=== PATIENT | female | born 1980 | race Caucasian/White ===

== ENCOUNTER 2024-05-02 13:41 | Emergency (ER) | payer OTHER ==
[2024-05-02 14:22] LABS: Absolute Eosinophils 0.1 K/uL (0-0.5); Absolute Lymphocytes (CBC) 1.6 K/uL (0.7-4.9); Absolute Monocytes 0.5 K/uL (0.1-1.3); Absolute Neutrophil 5.9 K/uL (1.8-8.0); Basophils % 0.3 % (0-1.3); Eosinophils % 0.7 % (0-4.4); Hematocrit 39.8 % (36.0-45.0); Hemoglobin 13.4 g/dL (12.0-15.0); Lymphocytes % 20.2 % (15.3-44.8); MCH 29.1 pg (27.0-35.0); MCHC 33.6 g/dL (32.0-36.0); MCV 86.5 fL (80-100); MPV 7.8 fL (7.6-11.3); Monocytes % 5.9 % (3.3-12.3); Neutrophils % 72.9 % (41.7-73.7); Nucleated Red Blood Cells % 0.1 % (0-0); Platelets 226 thou/uL (152-406); RBC Red Blood Cell Count 4.59 M/uL (3.86-4.86); Red Cell Distribution Width 14.5 % (12.1-15.2)
[2024-05-02 14:40] LABS: Anion Gap 7.6 mEq/L (5.0-15.0); BUN Blood Urea Nitrogen 14 mg/dL (7-18); Bicarbonate 26 mEq/L (21-32); Glomerular Filtration Rate 89 ml/min (=/>90); Glucose Level 96 mg/dL (74-106); NT PRO-BNP 48 pg/mL (<125); Potassium 3.6 mEq/L (3.5-5.1); Sodium Level 139 mEq/L (136-145)
[2024-05-02 14:43] LABS: Troponin High Sensitivity < 3.0 pg/mL (<58.9)
--- NOTE | 2024-05-02 15:54 | RAD REPORT ---
EXAMINATION: ONE VIEW CHEST XR CLINICAL INDICATION: Female, 43 years old.,CHEST PAIN TECHNIQUE: Frontal chest projection is submitted. Examination is limited by patient positioning and t echnique. COMPARISON: No prior exam. FINDINGS: The lungs are well inflated and clear. No pneumothorax or sizable effusion. The heart is normal in s ize. Mediastinal contours are unremarkable. IMPRESSION: No acute intrathoracic abnormalities.
[2024-05-02 16:02] LABS: Specific Gravity > 1.030 (1.005-1.030); Urine Bilirubin NEGATIVE (Negative); Urine Blood Negative (Negative); Urine Clarity Clear (Clear); Urine Color Colorless (Yellow); Urine Glucose NEGATIVE (Negative); Urine Ketones NEGATIVE (Negative); Urine Microscopic Reflex YN NO UMIC; Urine Nitrite NEGATIVE (Negative); Urine Protein NEGATIVE (Negative); Urine Urobilinogen Normal (Normal)
[2024-05-02 16:04] LABS: Specific Gravity > 1.030 (1.005-1.030)
--- NOTE | 2024-05-02 17:21 | RAD REPORT ---
EXAM: CT Head Brain Wo Cont HISTORY: HEADACHE COMPARISON: None TECHNIQUE: Multiple contiguous axial images were obtained for a CT of the brain without contrast. Sag ittal and coronal reformats were performed. One or more of the following dose reduction techniques were used: Automated exposure control, adjus tment of the mA and kV according to patient size, and iterative reconstruction. Unless otherwise specified, incidental findings do not require dedicated imaging follow-up. FINDINGS: No evidence of hydrocephalus, intracranial hemorrhage, or extra-axial fluid collection. The brain is normal in morphology. The calvarium is intact. The visualized paranasal sinuses and mastoid air cells are essentially clear . IMPRESSION: No evidence of acute intracranial abnormality.
--- NOTE | 2024-05-02 17:24 | RAD REPORT ---
EXAMINATION: CTA HEAD CLINICAL INDICATION: Female, 43 years old. headache, HTN TECHNIQUE: Axial CT images were obtained through the head after intravenous contrast utilizing angiog raphic protocol with 3D post-processing (maximum intensity projection images, volume rendered images and/or shaded surface rendered images). One or more of the following dose reduction technique s were used: Automated exposure control, adjustment of the mA and/or kV according to patient size, and/or iterative reconstruction. Unless otherwise specified, incidental findings do not require dedic ated imaging follow-up. COMPARISON: No prior exam. FINDINGS: ICA: The petrous, cavernous, and supraclinoid segments of the bilateral internal carotid arteries are normal. KYA: Anterior cerebral arteries are normal bilaterally. The anterior communicating artery is patent. MCA: Middle cerebral arteries are normal bilaterally. SHAG TRUCK DRIVER: Posterior cerebral arteries are normal bilaterally. Vertebrobasilar: The vertebral arteries are patent. The basilar artery is normal in appearance. 3D images confirm these findings. IMPRESSION: No evidence of large vessel occlusion or hemodynamically significant stenosis.
--- NOTE | 2024-05-02 17:46 | ER ---
Nurse's Notes [facility] Name: Beverley Toscano Age: 43 yrs Sex: Female : 1980 Arrival Date: 05/02/2024 Time: 13:41 Bed 16 Private MD: Diagnosis: Elevated blood-pressure reading, without diagnosis of hypertension;Headache;Chest pain, unspecified Presentation: 05/02 13:59 Chief complaint: Patient states: CP and SOB 1 hour [employer]. Coronavirus screen: Client ll1 denies travel out of the [place] in the last 14 days. At this time, the client does not indicate any symptoms associated with coronavirus-19. Ebola Screen: Patient denies travel to an Ebola-affected area in the 21 days before illness onset. Initial Sepsis Screen: Does the patient meet any 2 criteria? No. Patient's initial sepsis screen is negative. Does the patient have a suspected source of infection? No. Patient's initial sepsis screen is negative. Risk Assessment: Do you want to hurt yourself or someone else? Patient reports no desire to harm self or others. Onset of symptoms was May 02, 2024. 13:59 Method Of Arrival: Ambulatory ll1 13:59 Acuity: BECKY 3 ll1 Triage Assessment: 14:00 General: Appears uncomfortable, Behavior is cooperative, appropriate for age, anxious. ll1 Pain: Complains of pain in chest Pain currently is 2 out of 10 on a pain scale. Quality of pain is described as squeezing. Cardiovascular: Reports chest pain, shortness of breath. Historical: - Allergies: 13:58 No Known Allergies; ll1 - PMHx: 13:58 anxiety/depression; ll1 - PSHx: 13:58 None; ll1 - Immunization history:: Adult Immunizations up to date. - Infectious Disease History:: Denies. - Social history:: Smoking status: Patient denies any tobacco usage or history of. - Family history:: not pertinent. - Hospitalizations: : No recent hospitalization is reported. Screenin:09 [facility] ED Fall Risk Assessment (Adult) History of falling in the last 3 months, db including since admission No falls in past 3 months (0 pts) Confusion or Disorientation No (0 pts) Intoxicated or Sedated No (0 pts) Impaired Gait No (0 pts) Mobility Assist Device Used No (0 pt) Altered Elimination No (0 pt) Score/Fall Risk Level 0 - 2 = Low Risk Oriented to surroundings, Maintained a safe environment. Abuse screen: Denies threats or abuse. Denies injuries from another. Nutritional screening: No deficits noted. Tuberculosis screening: No symptoms or risk factors identified. Assessment: 14:55 Reassessment: Patient appears in no apparent distress at this time. Patient and/or db family updated on plan of care and expected duration. Pain level reassessed. Patient is alert, oriented x 3, equal unlabored respirations, skin warm/dry/pink. Reassessment: Patient states feeling better. Patient states symptoms have improved. General: Appears in no apparent distress. comfortable, Behavior is calm, cooperative. Pain: Pain does not radiate. Pain began gradually. Neuro: Level of Consciousness is awake, alert, obeys commands, Oriented to person, place, time, situation. Respiratory: Airway is patent Respiratory effort is even, unlabored, Respiratory pattern is regular, symmetrical. 16:00 Reassessment: Patient appears in no apparent distress at this time. Patient and/or db family updated on plan of care and expected duration. Pain level reassessed. Patient is alert, oriented x 3, equal unlabored respirations, skin warm/dry/pink. 17:00 Reassessment: Patient appears in no apparent distress at this time. Patient and/or db family updated on plan of care and expected duration. Pain level reassessed. Patient is alert, oriented x 3, equal unlabored respirations, skin warm/dry/pink. 18:03 Reassessment: Patient appears in no apparent distress at this time. Patient and/or db family updated on plan of care and expected duration. Pain level reassessed. Patient is alert, oriented x 3, equal unlabored respirations, skin warm/dry/pink. Patient states feeling better. Patient states symptoms have improved. Vital Signs: 13:50 BP 161 / 91; Pulse 84; Resp 16; Pulse Ox 100% ; db 13:59 BP 137 / 92; Pulse 78; Resp 16; Pulse Ox 100% ; Weight 63.5 kg; Height 5 ft. 4 in. ; ll1 Pain 2/10; 14:30 BP 126 / 86; Pulse 70; Resp 16; Pulse Ox 100% on R/A; db 16:00 BP 139 / 98; Pulse 70; Pulse Ox 100% on R/A; db 16:16 BP 122 / 89; Pulse 87; Resp 16; Pulse Ox 100% on R/A; db 17:00 BP 129 / 101; Pulse 75; Resp 16; Pulse Ox 98% on R/A; db 13:59 Body Mass Index 24.03 (63.50 kg, 162.56 cm) ll1 13:59 Pain Scale: Adult [facility] ED Course: 13:42 Patient arrived in ED. im 13:44 Harman Boland MD is Attending Physician. rn 13:58 Arm band placed on Patient placed in an exam room, on a stretcher. ll1 14:00 Triage completed. ll1 14:12 Kiya Calderon, RN is Primary Nurse. db 14:19 Warm blanket given. Verbal reassurance given. am7 14:19 Inserted saline lock: 20 gauge in left antecubital area, using aseptic technique. Blood am7 collected. Flushed with 10 mL NS. 14:36 XRAY Chest (1 view) In Process Unspecified. EDMS 15:07 CT Head Brain wo Cont In Process Unspecified. EDMS 15:[address] In Process Unspecified. EDMS 15:09 Patient moved back from CT. db 18:03 Patient has correct armband on for positive identification. Bed in low position. Call db light in reach. Side rails up X 1. Provided Education on: DISCHARGE AND FOLLOWUP. shelter monitor on. Pulse ox on. NIBP on. 18:03 No provider procedures requiring assistance completed. IV discontinued, intact, db bleeding controlled, No redness/swelling at site. Patient maintains SpO2 saturation greater than 95% on room air. Administered Medications: No medications were administered Medication: 17:30 VIS not applicable for this client. db Outcome: 17:46 Discharge ordered by . rn 18:03 Discharged to home ambulatory, with family, db 18:03 Condition: stable 18:03 Discharge instructions given to patient, family, Instructed on discharge instructions, follow up and referral plans. 18:06 Patient left the ED. db Signatures: Dispatcher [employer] Harman Ramirez MD MD rn Lewis, Lynsay, RN RN 1 Kiya Calderon, RN RN db Duarte, Tonie im Muraira, Julissa am7 Corrections: (The following items were deleted from the chart) 14:08 13:59 Pulse 78bpm; Resp 16bpm; Pulse Ox 100%; 63.5 kg; Height 5 ft. 4 in.; BMI: 24.0; ll1 Pain 2/10, Adult; ll1
--- NOTE | 2024-05-02 17:46 | EDPHYS ---
Physician Documentation [facility] Name: Beverley Toscano Age: 43 yrs Sex: Female : 1980 Arrival Date: 05/02/2024 Time: 13:41 Bed 16 Private MD: ED Physician Harman Boland HPI: 05/02 14:13 This 43 yrs old Female presents to ER via Ambulatory with complaints of Chest Pain, rn High Blood Pressure. 14:13 The patient or guardian reports chest pain that is located primarily in the anterior rn chest wall. Onset: this morning. The pain does not radiate. Associated signs and symptoms: Pertinent negatives: abdominal pain, cough, diaphoresis, dizziness, palpitations, syncope, vomiting. The chest pain is described as a heaviness. Modifying factors: The symptoms are alleviated by nothing. the symptoms are aggravated by nothing. Severity of pain: At its worst the pain was mild in the emergency department the pain has improved. The patient has not experienced similar symptoms in the past. Patient reports chest pain, started a few hours ago, left sided and feels like pressure on chest. Patient reports 2 days ago had sudden onset headache associated with high blood pressure. Does not have a history of high blood pressure. Patient reports blood pressure is normal. Does have family history of cerebral aneurysm. No family history of early cardiac disease. No head injury or trauma. No focal neurological deficit. Headache resolved with [id number] medication and rest that day. Does not have any more headache for the last few days. When chest pain started today she checked her blood pressure and was elevated so came in for evaluation. Denies abdominal pain.. Historical: - Allergies: 13:58 No Known Allergies; ll1 - PMHx: 13:58 anxiety/depression; ll1 - PSHx: 13:58 None; ll1 - Immunization history:: Adult Immunizations up to date. - Infectious Disease History:: Denies. - Social history:: Smoking status: Patient denies any tobacco usage or history of. - Family history:: not pertinent. - Hospitalizations: : No recent hospitalization is reported. ROS: 14:13 Constitutional: Negative for fever, chills, and weight loss, Eyes: Negative for injury, rn pain, redness, and discharge, Neck: Negative for injury, pain, and swelling, Cardiovascular: Positive for chest pain Respiratory: Negative for shortness of breath, cough, wheezing, and pleuritic chest pain, Abdomen/GI: Negative for abdominal pain, nausea, vomiting, diarrhea, and constipation, Back: Negative for injury and pain, MS/Extremity: Negative for injury and deformity, Skin: Negative for injury, rash, and discoloration, Neuro: Negative for headache, weakness, numbness, tingling, and seizure, Exam: 14:13 Constitutional: This is a well developed, well nourished patient who is awake, alert, rn and in no acute distress. Head/Face: Normocephalic, atraumatic. Neck: No meningismus Cardiovascular: Regular rate and rhythm. No pulse deficits. No murmur Respiratory: No increased work of breathing, no retractions or nasal flaring. Abdomen/GI: Soft, non-tender, with normal bowel sounds. No distension or tympany. No guarding or rebound. No evidence of tenderness throughout. MS/ Extremity: Pulses equal, no cyanosis. Neurovascular intact. Full, normal range of motion. Equal circumference. Neuro: Awake and alert, GCS 15, oriented to person, place, time, and situation. Cranial nerves II-XII grossly intact. Motor strength 5/5 in all extremities. Sensory grossly intact. 14:19 ECG was reviewed by the Attending Physician. rn Vital Signs: 13:50 BP 161 / 91; Pulse 84; Resp 16; Pulse Ox 100% ; db 13:59 BP 137 / 92; Pulse 78; Resp 16; Pulse Ox 100% ; Weight 63.5 kg; Height 5 ft. 4 in. ; ll1 Pain 2/10; 14:30 BP 126 / 86; Pulse 70; Resp 16; Pulse Ox 100% on R/A; db 16:00 BP 139 / 98; Pulse 70; Pulse Ox 100% on R/A; db 16:16 BP 122 / 89; Pulse 87; Resp 16; Pulse Ox 100% on R/A; db 17:00 BP 129 / 101; Pulse 75; Resp 16; Pulse Ox 98% on R/A; db 13:59 Body Mass Index 24.03 (63.50 kg, 162.56 cm) ll1 13:59 Pain Scale: Adult ll1 MDM: 13:44 Medical Screening Exam initiated rn 17:45 Differential diagnosis: acute myocardial infarction, acute pericarditis, anxiety, chest rn wall pain, costochondritis, gastroesophageal reflux disease (GERD), pleurisy, pneumothorax, Hypertension. HEART Score: History: Slightly Suspicious (0), ECG: Normal (0), Age: < or = 45 years (0), Risk Factors: No Risk Factors Known (0), Troponin: < or = 1 x Normal Limit (0), Total Score = 0. LUDY Risk Score:. Data reviewed: vital signs, nurses notes, lab test result(s), EKG, radiologic studies, plain films, and as a result, I will discharge patient. Counseling: I had a detailed discussion with the patient and/or guardian regarding the historical points, exam findings, and any diagnostic results supporting the discharge/admit diagnosis, lab results, radiology results, the need for outpatient follow up, to return to the emergency department if symptoms worsen or persist or if there are any questions or concerns that arise at home. Response to treatment: the patient's symptoms have markedly improved after treatment, and as a result, I will discharge patient. Special discussion: I have referred the patient to see his PCP for further evaluation of high blood pressure. I discussed with the patient/guardian in detail that at this point there is no indication for admission to the hospital. It is understood, however, that if the symptoms persist or worsen the patient needs to return immediately for re-evaluation. Based on the history and exam findings, there is no indication for further emergent testing or inpatient evaluation. I discussed with the patient/guardian the need to see the primary care provider for further evaluation of the symptoms. 05/02 14:02 Order name: Basic Metabolic Panel; Complete Time: 15:04 05/02 14:02 Order name: CBC with Diff; Complete Time: 15:05/02 14:02 Order name: NT PRO-BNP; Complete Time: 15:05/02 14:02 Order name: Troponin HS; Complete Time: 15:05/02 14:02 Order name: Test, Urine; Complete Time: 16:25 05/02 14:02 Order name: Urinalysis w/ reflexes; Complete Time: 16:25 05/02 14:02 Order name: XRAY Chest (1 view); Complete Time: 16:25 05/02 14:02 Order name: CT Head Brain wo Cont; Complete Time: 17:31 rn 05/02 14:02 Order name: Head Angio CT; Complete Time: 17:31 rn 05/02 14:02 Order name: EKG; Complete Time: 14:03 rn 05/02 14:02 Order name: Cardiac monitoring; Complete Time: 14:06 rn 05/02 14:02 Order name: EKG - Nurse/Tech; Complete Time: 14:06 rn 05/02 14:02 Order name: IV Saline Lock; Complete Time: 14:20 rn 05/02 14:02 Order name: Labs collected and sent; Complete Time: 14:20 rn 05/02 14:02 Order name: O2 Per Protocol; Complete Time: 14: rn 05/02 14:02 Order name: O2 Sat Monitoring; Complete Time: 14:06 rn EC:19 Rate is 68 beats/min. Rhythm is regular. QRS [place] is Normal. OR interval is normal. QRS rn interval is normal. QT interval is normal. No Q waves. T waves are Normal. No ST changes noted. Clinical impression: NSR w/ Non-specific ST/T Changes. Interpreted by me. Reviewed by me. Administered Medications: No medications were administered Disposition Summary: 05/02/24 17:46 Discharge Ordered Notes: Location: Home rn Problem: new rn Symptoms: have improved rn Condition: Stable rn Diagnosis - Elevated blood-pressure reading, without diagnosis of hypertension rn - Headache rn - Chest pain, unspecified rn Followup: rn - With: Private Physician - When: As needed - Reason: Recheck today's complaints, Re-evaluation by your physician Discharge Instructions: - Discharge Summary Sheet rn - Nonspecific Chest Pain, Adult rn - General Headache Without Cause rn - Hypertension, Adult rn - Managing Your Hypertension rn Forms: - Medication Reconciliation Form rn - Antibiotic learning center instructor - Prescription Opioid Use rn - Patient Portal Instructions rn - Leadership Thank You Letter rn Signatures: Dispatcher [employer] Harman Ramirez MD MD rn Lewis, Lynsay RN RN ll1 Kiya Calderon, RN RN db
[2024-05-02 18:31] VITALS: BP 129/101; O2SAT 98
--- NOTE | 2024-05-04 14:46 | EKG ---
Test Date: 2024-05-02 Test Time: 13:59:13 Production Stage Manager: AM MEASUREMENT RESULTS: Intervals: Rate: 68 OR: 138 QRSD: 70 QT: 408 QTc: 433 [place]: P: 50 OR: 138 QRS: 33 T: 42 INTERPRETIVE STATEMENTS: Normal sinus rhythm Low voltage QRS Borderline ECG No previous ECG available for comparison Electronically Signed On 05-04-24 14:41:58 CDT by Mehdi Sterling
== END 2024-05-02 18:06 | disposition home or self-care (01) ==
LOC: ER 13:41
DX: R03.0 Elevated blood-pressure reading, without diagnosis of hypertension (principal); R51.9 Headache, unspecified
CPT/HCPCS: 85025; 80048; 36415; 81025; 81003; 84484; 83880; 70450; 70496; 71045; Q9967; 93005; 99285